=== PATIENT | female | born 1945 | race Caucasian/White ===

== ENCOUNTER 2024-10-01 14:12 | Emergency (ER) | payer BC, MEDICARE ==
[~2024-10-01] VITALS: Ht 154.9 cm; Wt 53.5 kg
[2024-10-01 15:27] VITALS: BP 150/88; O2SAT 99
== END 2024-10-01 15:41 | disposition home or self-care (01) ==
LOC: ER 14:12
DX: S90.31XA Contusion of right foot, initial encounter (principal); M79.671 Pain in right foot; R22.41 Localized swelling, mass and lump, right lower limb; Z88.0 Allergy status to penicillin; Z88.7 Allergy status to serum and vaccine; W18.39XA Other fall on same level, initial encounter; Y93.89 Activity, other specified; Y92.89 Other specified places as the place of occurrence of the external cause; Y99.8 Other external cause status
CPT/HCPCS: 73620; A4606; A4663